=== PATIENT | female | born 1970 | race Caucasian/White ===

== ENCOUNTER → 2017-08-20 12:38 | Outpatient (CLI) | payer MEDICAID | END | disposition home or self-care (01) | LOC: D.MAMMO 11:30 → EDBD 12:38 | DX: Z12.31 Encounter for screening mammogram for malignant neoplasm of breast (principal) ==

== ENCOUNTER 2017-09-07 16:47 | Outpatient (CLI) | payer MEDICAID | END 2017-09-07 23:59 | disposition home or self-care (01) | LOC: EDBD 16:47 → D.MAMMO 16:47 | DX: R92.8 Other abnormal and inconclusive findings on diagnostic imaging of breast (principal) ==

== ENCOUNTER → 2017-09-24 11:07 | Outpatient (CLI) | payer MEDICAID | END | disposition home or self-care (01) | LOC: D.US 11:00 | DX: R92.8 Other abnormal and inconclusive findings on diagnostic imaging of breast (principal) ==